=== PATIENT | female | born 1975 | race Two or more races ===

== ENCOUNTER 2023-01-15 19:37 | Emergency (ER) | payer MEDICAID, OTHER ==
[~2023-01-15] VITALS: Ht 152.4 cm; Wt 82.2 kg
[2023-01-15] MEDS ORDERED: IPRATROPIUM BROM 0.5 MG/2.5ML INH SOL NEB ONE (21:30)
[2023-01-15] MEDS ORDERED: ALBUTEROL SULF 2.5 MG/0.5ML(0.5%) NEB SOLN NEB ONE (21:30)
[2023-01-15] MEDS ORDERED: DexAMETHasone SOD PHOS 10MG/1ML VIAL INJ IM ONE (21:30)
[2023-01-15] MEDS ORDERED: PRED20TA2 PO (21:54)
[2023-01-15 23:12] VITALS: BP 137/77; PULSE 83; RESP 18; TEMP 98.6; O2SAT 97
== END 2023-01-15 22:56 | disposition home or self-care (01) ==
LOC: EDBD 19:37 → ER 19:37
DX: J45.901 Unspecified asthma with (acute) exacerbation (principal); J02.8 Acute pharyngitis due to other specified organisms; R51.9 Headache, unspecified
CPT/HCPCS: 71045; 94640; 96372; 99283; J1100; J7644